=== PATIENT | female | born 1930 | race African-American/Black ===

== ENCOUNTER 2017-02-03 09:58 | Emergency (ER) | payer MEDICARE, MEDICAID ==
[~2017-02-03] VITALS: Ht 154.9 cm; Wt 73.0 kg
[2017-02-03] MEDS ORDERED: ONDANSETRON HCL 4MG/2ML VIAL IV STA (10:15)
[2017-02-03] MEDS ORDERED: MORPHINE SULFATE 4 MG/ML CPJ (NOT FOR IM USE) IV STA (10:15)
[2017-02-03 11:19] LABS: BASOPHILS % 0.7 % (0.0-2.0); HEMATOCRIT. 43.8 % (36.0-48.0); HEMOGLOBIN. 14.2 g/dL (12.0-16.0); LYMPHOCYTES % 14.5 % (20.0-50.0); MEAN CORPUSCULAR HEMOGLOBIN 29.9 pg (28.0-32.0); MEAN CORPUSCULAR HGB CONC 32.5 g/dL (31.0-37.0); MONOCYTES % 6.5 % (2.0-8.0); NEUTROPHILS % 77.3 % (40.0-76.0); PLATELET 430 x1000/uL (130-400); RED BLOOD CELL COUNT 4.77 mill/uL (4.2-5.4); RED CELL DISTRIBUTION WIDTH 14.9 % (11.6-14.6)
[2017-02-03 11:31] LABS: ALANINE AMINOTRANSFERASE 9 IU/L (13-61); ALBUMIN 2.8 g/dL (3.4-5.0); ANION GAP 17; CALCIUM 9.3 mg/dL (8.5-10.1); CARBON DIOXIDE 26 mEq/L (21-32); CHLORIDE 102 mEq/L (98-107); INDEX HEMOLYSI 1 (1-3); INDEX ICTERIC 1 (1-4); INDEX LIPEMIC 1 (1-3); INR 1.1; LIPASE 118 IU/L (73-393); UREA NITROGEN BLOOD 16 mg/dL (7-21)
[2017-02-03 11:36] LABS: TROPONIN I 0.03 ng/mL (0.00-0.04); eGFR > 60 mL/min (>60)
[2017-02-03 13:10] VITALS: BP 122/68
== END 2017-02-03 13:10 | disposition home or self-care (01) ==
LOC: ER 10:16
DX: M25.551 Pain in right hip (principal); D72.829 Elevated white blood cell count, unspecified; E11.9 Type 2 diabetes mellitus without complications; Z86.73 Personal history of transient ischemic attack (TIA), and cerebral infarction without residual deficits; Z90.710 Acquired absence of both cervix and uterus
CPT/HCPCS: 36415; 71010; 73502; 80053; 83690; 84484; 85025; 85610; 86850; 86900; 86901; 93005; 96374; 96375; 99285; J2270; J2405